=== PATIENT | male | born 2000 | race Caucasian/White ===

== ENCOUNTER 2021-07-28 07:27 | Emergency (ER) | payer OTHER ==
[~2021-07-28] VITALS: Ht 185.4 cm; Wt 88.1 kg
[2021-07-28 08:55] LABS: HEMATOCRIT 45.8 % (42.0-52.0); HEMOGLOBIN 15.2 g/dl (13.5-17.5); MEAN CORPUSCULAR HEMOGLOBIN 30.6 pg (27.0-33.0); MEAN CORPUSCULAR HGB CONC 33.2 g/dl (32.0-36.5); MEAN CORPUSCULAR VOLUME 92.3 fl (80.0-96.0); PLATELET COUNT, AUTOMATED 184 10^3/uL (150-450); RED BLOOD COUNT 4.96 10^6/uL (4.30-6.10); WHITE BLOOD COUNT 6.4 10^3/uL (4.0-10.0)
[2021-07-28 09:31] LABS: ACETAMINOPHEN LEVEL < 2.0 UG/ML (10.0-30.0); ALBUMIN 4.1 GM/DL (3.2-5.2); ALT/SGPT 27 U/L (12-78); BILIRUBIN,DIRECT 0.3 MG/DL (0.0-0.2); BLOOD UREA NITROGEN 12 MG/DL (7-18); CALCIUM LEVEL 9.3 MG/DL (8.5-10.1); CARBON DIOXIDE LEVEL 29 MEQ/L (21-32); CHLORIDE LEVEL 109 MEQ/L (98-107); CREATININE FOR GFR 0.98 MG/DL (0.70-1.30); ETHYL ALCOHOL (ETHANOL) < 0.003 % (0.000-0.010); GLOMERULAR FILTRATION RATE > 60.0 (>60); GLUCOSE, FASTING 104 MG/DL (70-100); POTASSIUM SERUM 4.2 MEQ/L (3.5-5.1); SALICYLATE LEVEL < 1.7 MG/DL (5.0-30.0); SODIUM LEVEL 142 MEQ/L (136-145); TOTAL PROTEIN 7.2 GM/DL (6.4-8.2)
[2021-07-28 10:26] LABS: AMPHETAMINES LEVEL URINE NEGATIVE (NEGATIVE); BARBITURATES URINE NEGATIVE (NEGATIVE); BENZODIAZEPINES URINE NEGATIVE (NEGATIVE); CANNABINOIDS URINE POSITIVE (NEGATIVE); COCAINE METABOLITE URINE NEGATIVE (NEGATIVE); METHADONE URINE NEGATIVE (NEGATIVE); OPIATES URINE NEGATIVE (NEGATIVE); PHENCYCLIDINE URINE NEGATIVE (NEGATIVE)
[2021-07-28 12:34] VITALS: BP 141/80
--- NOTE | 2021-07-28 14:38 | MHIPNPDOC ---
[facility] Progress Note Progress Note DATE OF SERVICE: 07/28/21 Patient presented by PSA, does not meet criteria for involuntary admission, refuses voluntary admission. Patient self presents, as a walk-in, reported some anxiety and depressive symptoms that are chronic without specific trigger. Reports had treatment a couple years ago. 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 Patient has no weapons, tox screen is positive for cannabis and patient reports social alcohol 1-2 beers rarely. On interview per PSA has bright affect, appropriate, smiles and laughs, needs to have an appointment within 5 days and safety plan in place including having father watch patient until his mental health appointment and can be safely discharged. Vital Signs Vital Signs Date Time Temp Pulse Resp B/P (MAP) Pulse Ox O2 Delivery O2 Flow Rate FiO2 07/28/21 12:34 98.6 50 17 141/80 (100) 98 07/28/21 07:28 Room Air Laboratory Data 24H Labs Laboratory Tests 2 07/28/21 08:36: Nucleated Red Blood Cells % (auto) 0.0, Anion Gap 4L, Glomerular Filtration Rate > 60.0, Calcium Level 9.3, Total Bilirubin 1.0, Direct Bilirubin 0.3H, Aspartate Amino Transf (AST/SGOT) 25, Alanine Aminotransferase (ALT/SGPT) 27, Alkaline Phosphatase 71, Total Protein 7.2, Albumin 4.1, Albumin/Globulin Ratio 1.3, Thyroid Stimulating Hormone (TSH) 0.970, Salicylates Level < 1.7L, Urine Opiates Screen NEGATIVE, Urine Methadone Screen NEGATIVE, Acetaminophen Level < 2.0L, Urine Barbiturates Screen NEGATIVE, Urine Phencyclidine Screen NEGATIVE, Urine Amphetamines Screen NEGATIVE, Urine Benzodiazepines Screen NEGATIVE, Urine Cocaine Metabolite Screen NEGATIVE, Urine Cannabinoids Screen POSITIVEH, Ethyl Alcohol Level < 0.003 CBC/BMP Laboratory Tests 07/28/21 08:36 Allergies Coded Allergies: No Known Allergies (Unverified , 07/28/21) DEBBY FLORES MD Jul 28, 2021 14:38
== END 2021-07-28 12:35 | disposition home or self-care (01) ==
LOC: M ED 07:27
DX: F33.9 Major depressive disorder, recurrent, unspecified (principal); F41.9 Anxiety disorder, unspecified

== ENCOUNTER 2021-07-29 08:29 | Inpatient (IN) | payer OTHER ==
[~2021-07-29] VITALS: Ht 185.4 cm; Wt 87.5 kg
[2021-07-29 10:54] LABS: HEMATOCRIT 46.4 % (42.0-52.0); HEMOGLOBIN 15.3 g/dl (13.5-17.5); MEAN CORPUSCULAR HEMOGLOBIN 30.8 pg (27.0-33.0); MEAN CORPUSCULAR VOLUME 93.4 fl (80.0-96.0); PLATELET COUNT, AUTOMATED 191 10^3/uL (150-450); RED BLOOD COUNT 4.97 10^6/uL (4.30-6.10); WHITE BLOOD COUNT 7.7 10^3/uL (4.0-10.0)
[2021-07-29 11:11] LABS: AMPHETAMINES LEVEL URINE NEGATIVE (NEGATIVE); BARBITURATES URINE NEGATIVE (NEGATIVE); BENZODIAZEPINES URINE NEGATIVE (NEGATIVE); CANNABINOIDS URINE POSITIVE (NEGATIVE); COCAINE METABOLITE URINE NEGATIVE (NEGATIVE); METHADONE URINE NEGATIVE (NEGATIVE); OPIATES URINE NEGATIVE (NEGATIVE); PHENCYCLIDINE URINE NEGATIVE (NEGATIVE)
[2021-07-29 11:32] LABS: ALBUMIN 4.2 GM/DL (3.2-5.2); ALT/SGPT 28 U/L (12-78); BILIRUBIN,DIRECT 0.3 MG/DL (0.0-0.2); BILIRUBIN,TOTAL 1.1 MG/DL (0.2-1.0); BLOOD UREA NITROGEN 12 MG/DL (7-18); CALCIUM LEVEL 9.8 MG/DL (8.5-10.1); CARBON DIOXIDE LEVEL 30 MEQ/L (21-32); CHLORIDE LEVEL 107 MEQ/L (98-107); CREATININE FOR GFR 1.04 MG/DL (0.70-1.30); ETHYL ALCOHOL (ETHANOL) < 0.003 % (0.000-0.010); GLOMERULAR FILTRATION RATE > 60.0 (>60); GLUCOSE, FASTING 97 MG/DL (70-100); POTASSIUM SERUM 4.2 MEQ/L (3.5-5.1); SALICYLATE LEVEL < 1.7 MG/DL (5.0-30.0); SODIUM LEVEL 140 MEQ/L (136-145); TOTAL PROTEIN 7.4 GM/DL (6.4-8.2)
[2021-07-29 11:33] LABS: ACETAMINOPHEN LEVEL < 2.0 UG/ML (10.0-30.0)
--- NOTE | 2021-07-29 14:36 | MHIPNPDOC ---
[facility] Progress Note Progress Note DATE OF SERVICE: 07/29/21 Patient presented by PSA, meets criteria for involuntary admission, reports suicidal ideations and did not go to clinic today in context of his thoughts. Vital Signs Vital Signs Date Time Temp Pulse Resp B/P (MAP) Pulse Ox O2 Delivery O2 Flow Rate FiO2 07/29/21 08:30 98.2 54 16 120/66 (84) 96 Room Air Laboratory Data 24H Labs Laboratory Tests 2 07/29/21 10:32: Nucleated Red Blood Cells % (auto) 0.0, Anion Gap 3L, Glomerular Filtration Rate > 60.0, Calcium Level 9.8, Total Bilirubin 1.1H, Direct Bilirubin 0.3H, Aspartate Amino Transf (AST/SGOT) 23, Alanine Aminotransferase (ALT/SGPT) 28, Alkaline Phosphatase 73, Total Protein 7.4, Albumin 4.2, Albumin/Globulin Ratio 1.3, Thyroid Stimulating Hormone (TSH) 0.620, Salicylates Level < 1.7L, Urine Opiates Screen NEGATIVE, Urine Methadone Screen NEGATIVE, Acetaminophen Level < 2.0L, Urine Barbiturates Screen NEGATIVE, Urine Phencyclidine Screen NEGATIVE, Urine Amphetamines Screen NEGATIVE, Urine Benzodiazepines Screen NEGATIVE, Urine Cocaine Metabolite Screen NEGATIVE, Urine Cannabinoids Screen POSITIVEH, Ethyl Alcohol Level < 0.003 CBC/BMP Laboratory Tests 07/29/21 10:32 Allergies Coded Allergies: No Known Allergies (Unverified , 07/28/21) DEBBY FLORES MD Jul 29, 2021 14:36
[2021-07-29] MEDS ORDERED: HOME MED LIST COMPLETE! XX SCH (16:45)
[2021-07-29] MEDS ORDERED: MOM 30ML SUSPENSION UDC PO PRN (17:55)
[2021-07-29] MEDS ORDERED: traZODone 50 MG TAB PO PRN (17:55)
[2021-07-29] MEDS ORDERED: OLANZapine ORAL DISINTEGRATING TAB 5MG PO PRN (17:55)
[2021-07-29] MEDS ORDERED: MAALOX 30 ML SUSP *UDC PO PRN (17:55)
[2021-07-29] MEDS ORDERED: ACETAMINOPHEN TAB 650MG DOSE (2X325MG) PO PRN (17:55)
[2021-07-29 18:25] LABS: RSV AMPLIFICATION NEGATIVE (NEGATIVE)
[2021-07-29 20:28] VITALS: BP 140/91
[2021-07-30 06:32] VITALS: BP 130/68
--- NOTE | 2021-07-30 12:17 | MHHPEPDOC ---
General Date Of Admission: Jul 29, 2021 Legal Status: 9.39 Chief Complaint "Looking to get better, looking to get rid of my depression and anxiety and feel happy for once. ". 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 Recently moved here from [place]. He reports fleeting thoughts of suicidal thinking since he was young but has had no planning or intent. He is a dependent reporting that his family's lifestyle is the root of his problems. States that he went to 10 different schools, 3 high schools, and 2 different colleges. States that he is currently living in a Duplex and Older brother lives in the other half of the duplex. Also reporting poor sleep since his multiple concussions at age 13, states he only gets less than 6 hours of sleep a night. Father is stationed in [place] currently and is in [place] to take him back to [place] for [facility]. He states that he was given the option to get an outpatient appointment but his father encouraged him to be admitted to "fast track" the appointment. Denies that he had any suicidal intent or planning in the interview today. And is requesting to be discharged. He states that he does not want to try any medications at this time, wants to research medications as he states that in the past, medications did not work effectively and he quit taking them very shortly after starting. PER ED REPORT: Pt was seen yesterday and was offered a vol admission yesterday, however he declined and wanted to try to present to [facility] walk in clinic this am. Pt re- presents today requesting hospitalization and notes he was thinking about drowning himself last night while taking a shower. Pt states, "I'm starting to feel worse, so I decided to come back." Pt reports a long hx of anxiety and depression. He believes it stems from getting 4 concussions while playing hockey at the age of [age] years old. As a result, he's struggled with sleep and continues to suffer from sleep disturbances. Pt admits presenting to the ED yesterday, but was not suicidal or homicidal, therefore decided to return home and present to the walk in clinic this am. He notes while he was taking a shower last night, he thought about drowning himself, hence why he felt he needed to return for an acu te hospitalization. It is unclear what his suicidal stressors are, however pt notes feeling very lonely. Pt currently denies SI while in the ED, but is unable to CFS at this time. Psychiatric Review of Systems Depression (2 or more weeks): depressed mood, anhedonia, insomnia/hypersomnia, feelings of excess/guilt, feelings of worthlesness (hopelessnss and hopelessness), decreased energy, difficulty concentrating (poor focus), appetite changes (weight fluctuation), suicidal thoughts (fleeting ) Angie (4 or more days of): denies Psychosis: denies PTSD: denies Anxiety: gen/non-specific anxiety, situational anxiety, stressor related anxiety, panic attacks Anxiety/ 6 months or more of: restlessness, keyed up, easily fatigued, difficul ty concentrating, irritability, muscle tension, sleep disturbance Past Psychiatric History Previous Psychiatric Diagnosis: ADHD, Previous Psychiatric Admissions: This is first admission Suicide Attempts: Ideation and Gestures to hang self when he was 17 years old0 Psychiatric Follow-up: had therapy in the past Psychiatric medications: trialed Prozac, Escitalopram, Ritalin. Past Medical History Medical Problems No contributory medical has shaking in his hands, was seen by a neurologist in [place] with no real answers - has difficulty holding glass of water. Head Injury: Yes (concussion at age 13, averages 6 hours of sleep. ) Seizures: No Hospitalizations: Yes Surgeries: Yes (Right shoulder surgery) Family Medical/Psychiatric HX Psychiatric Disorders: Yes (paternal grandfather - depression) Addiction: No Suicide Attemps/Completions: No Addiction History nicotine (history of vaping, not current), alcohol (drink on the weekends, has 6-8 beers, ), other (Cannabis, daily if he can't sleep, lets him slow his brain down. ) Social History Childhood: Born in [facility]. And lived multiple places growing up. Had both parents growing up. Older stepbrother and younger brother and sister. Did not do well grade jasso. Describes childhood "different" different than a lot of kids. 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 Social Support: Mom and Dad, Family and Brother Legal: None Marital: Single Mental Status Examination General Appearance: disheveled, appears stated age, hospital scubs/clothing Build: tall Demeanor: average Activity: average Behavior: cooperative Speech: clear, reg/rate,rhythm,volume Mood: depressed (mild), anxious Affect: full Thought Process: logical/linear Thought Content (Delusions): none reported Thought Content (Other): none reported Thought Content (Aggressive): none reported Perception (Hallucinations): none reported Perception (Other): none reported Cognition (Impairment of): none reported Cognition(Intelligence Est.): average Oriented: Awake, Alert, Oriented times three Insight: good Judgment: Good Psychosis: Denies Diagnoses Major depressive disorder Generalized anxiety disorder ADHD A-FIB/CHADSVASC A-FIB History Current/History of A-Fib/PAF?: No Current PO Anticoag Therapy: No Assessment Patient is a 20 -year-old 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 Recently moved here from [place]. Patient reports a long history of moving around the country and internationally due to his father's service. States that multiple moving, not being able to make friends, having difficulty in school, having poor sleep due to multiple concussions are reasons for his anxiety and depression. He reports fleeting suicidal ideations but in the interview denied any intent or planning. In the interview patient denies wanting to self-harm, reports depression and anxiety is controlled and does not that warrant continued hospitalization. He stated that today is [facility] and he was hoping to go home and celebrate that with his family. Patient is alert and oriented his mood and affect is euthymic. Father who is stationed in [place] is in [place] to take sons back to [place] for the weekend. Patient is reporting that he is safe for discharge. Patient can be discharged today Initial Treatment Plan 1. Patient was admitted on a [9.39] status. 2. Complete history was obtained. 3. With patients permission, family will be contacted and database will be expanded. 4. Patients medication regimen will be reviewed and changed accordingly. 5. Patient will be provided with protected environment. 6. Patient will be treated with individual, group, and milieu therapies. 7. Patient will receive supportive psych-education. 8. Discharge planning will commence immediately. 9. Outpatient follow-up treatment will be strongly recommended. 10. The initial treatment plan will focus initially on: * Depression. * Risk for suicide * Anxiety ESTIMATED LENGTH OF STAY: 1-3 DAYS. TIME SPENT COUNSELING AND COORDINATING INITIAL CARE: 60 minutes. Tobacco Cessation Screen If Patient is a Smoker Not a smoker N/A-No Antipsychotics Vital Signs Vital Signs Date Time Temp Pulse Resp B/P (MAP) Pulse Ox O2 Delivery O2 Flow Rate FiO2 07/30/21 06:32 97.0 94 16 130/68 (88) 96 Room Air Laboratory Data 24H Labs Laboratory Tests 2 07/29/21 17:21: Coronavirus (COVID-19)(PCR) NEGATIVE, Influenza Type A (RT-PCR) NEGATIVE, Influenza Type B (RT-PCR) NEGATIVE, Respiratory Syncytial Virus (PCR) NEGATIVE Medications No Active Prescriptions or Reported Meds Allergies Coded Allergies: No Known Allergies (Unverified , 07/28/21) MOSES CHÁVEZ NP Jul 30, 2021 12:16
--- NOTE | 2021-07-30 12:30 | MHDSPDOC ---
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 He reports fleeting thoughts of suicidal thinking since he was young but has had no planning or intent. He is a dependent reporting that his family's lifestyle is the root of his problems. States that he went to 10 different schools, 3 high schools, and 2 different colleges. States that he is currently living in a Duplex and Older brother lives in the other half of the duplex. Also reporting poor sleep since his multiple concussions at age 13, states he only gets less than 6 hours of sleep a night. Father is stationed in [place] currently and is in [place] to take him back to [place] for [email or web address]. He states that he was given the option to get an outpatient appointment but his father encouraged him to be admitted to "fast track" the appointment. Denies that he had any suicidal intent or planning in the interview today. And is requesting to be discharged. He states that he does not want to try any medications at this time, wants to research medications as he states that in the past, medications did not work effectively and he quit taking them very shortly after starting. PER ED REPORT: Pt was seen yesterday and was offered a vol admission yesterday, however he declined and wanted to try to present to [facility] walk in clinic this am. Pt re- presents today requesting hospitalization and notes he was thinking about drowning himself last night while taking a shower. Pt states, "I'm starting to feel worse, so I decided to come back." Pt reports a long hx of anxiety and depression. He believes it stems from getting 4 concussions while playing hockey at the age of [age] years old. As a result, he's struggled with sleep and continues to suffer from sleep disturbances. Pt admits presenting to the ED yesterday, but was not suicidal or homicidal, therefore decided to return home and present to the walk in clinic this am. He notes while he was taking a shower last night, he thought about drowning himself, hence why he felt he needed to return for an acute hospitalization. It is unclear what his suicidal stressors are, however pt notes feeling very lonely. Pt currently denies SI while in the ED, but is unable to CFS at this time. VITAL SIGNS: See below. CONSULTANTS INVOLVED: See Medical H + P by Hospitalist TREATMENT AND PROGRESS ON THE UNIT: Patient was admitted to the [facility] on a 39 legal status was afforded the following treatment modalities: 1) Individual Therapy 2) Group Therapy 3) Medication Management 4) Milieu Therapy 5) Safe Environment HOSPITAL COURSE: Patient was admitted to [facility] on a 39 legal status. In today's interview, he states that he wanted admission in order to fast track his appointment, does not want further hospitalization. States that his mood, anxiety, and intrusive thoughts has lessened with one night in the hospital. Pt reports that his symptoms improved. On day of discharge pt. denied depression, anxiety, insomnia, SI/HI, hallucinations, delusions. Pt was discharged home with follow-up with [facility]. Pt felt safe for discharge. DISCHARGE ASSESSMENT: In today's interview, patient is alert and oriented, pt.s dress is appropriate. Hygiene and grooming is well-kempt. Smiles on approach and is pleasant and engaged in the interview. Denies depression and anxiety. Denies suicidal and homicidal ideation, planning or intent. Denies and is not observed with idalia, psychotic symptoms of delusions, bizarre thinking, obses sions, paranoia, ruminations illogical thoughts, flight of ideas or having poor insight and judgement. Reinforced with patient need to abstain from alcohol and drugs. At discharge patient has normal mentation, declines further hospitalization on a voluntary status and meets criteria for discharge today. Discussed indications of medications, potential benefits and risks, alternatives (including no treatment) and questions were encouraged and answered. Patient encouraged to return to hospital if symptoms worsen or change and encouraged to call unit if he/she/they needs to speak to provider for questions regarding medications or care. 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 Denies suicidal/homicidal ideation, planning or intent. Abstract reasoning, and computation: fair Description of associations: denies, none observed Description of abnormal or psychotic thoughts: denies, none observed. Judgment: good Insight: good Orientation: alert and oriented to person, place, time and situation Recent and remote memory: intact Attention span and concentration: good Language: expansive Fund of knowledge: average Mood: Euthymic Mood Affect: reactive Suicide Risk Assessment: 1) Does the patient wish to be ? No 2) Since your admission, have you had any actual thought of killing yourself? No 3) Since your admission, have you been thinking about how you might do this? No 4) Since your admission, have you had these thoughts and had some intention of acting on them? No 5) Since your admission, have you started to work out or worked out the details of how to kill yourself? No 5A) Do you intent to carry out this plan? No and NA 6) Have you ever done anything, started anything, or prepared to do anything with any intent to ? No 6A) How long since your admission did you do any of these? NA MEDICATIONS ON DISCHARGE: See Medication Reconciliation PLAN/FOLLOWUP ARRANGEMENTS: [facility] The amount of time spent in the coordination of care for this patient was approximately 10 minutes. ETOH/Disorder Med Rx ETOH/DRUG DISORDER RX: Offrd @ d/c & pt refused, N/A Vital Signs/I&Os Vital Signs Date Time Temp Pulse Resp B/P (MAP) Pulse Ox O2 Delivery O2 Flow Rate FiO2 07/30/21 06:32 97.0 94 16 130/68 (88) 96 Room Air Laboratory Data Labs 24H Laboratory Tests 2 07/29/21 17:21: Coronavirus (COVID-19)(PCR) NEGATIVE, Influenza Type A (RT-PCR) NEGATIVE, Influenza Type B (RT-PCR) NEGATIVE, Respiratory Syncytial Virus (PCR) NEGATIVE Medications No Active Prescriptions or Reported Meds Allergies Coded Allergies: No Known Allergies (Unverified , 07/28/21) MOSES CHÁVEZ NP Jul 30, 2021 12:30
== END 2021-07-30 15:30 | disposition home or self-care (01) | DRG 881 ==
LOC: M ED 08:29 → M ED INP 17:54 → M PSY 19:50
PROVIDERS: ADMIT Psychiatry & Neurology Psychiatry; ATTEND Psychiatry & Neurology Psychiatry
DX: F32.9 Major depressive disorder, single episode, unspecified (principal); R45.851 Suicidal ideations; F41.1 Generalized anxiety disorder; F90.9 Attention-deficit hyperactivity disorder, unspecified type; Z20.822 Contact with and (suspected) exposure to COVID-19